=== PATIENT | female | born 1975 ===

== ENCOUNTER 2017-12-04 13:00 | Inpatient (IN) | payer OTHER ==
[~2017-12-04] VITALS: Ht 165.1 cm; Wt 71.2 kg
[2017-12-04] MEDS ORDERED: PRENATABS RX T1 EACH PO (15:30)
[2017-12-04] MEDS ORDERED: ASA81 MG PO (15:30)
[2017-12-04] MEDS ORDERED: IRON18 MG PO (15:31)
== END 2017-12-06 20:35 | DRG 807 ==
LOC: OB/GYN 13:00 → LDR 13:00 → OB/GYN 16:13
PROC: 10E0XZZ Delivery of Products of Conception, External Approach (ICD-10-PCS; principal; 2017-12-04)
PROC: 0KQM0ZZ Repair Perineum Muscle, Open Approach (ICD-10-PCS; 2017-12-04)
PROC: 4A1HXCZ Monitoring of Products of Conception, Cardiac Rate, External Approach (ICD-10-PCS; 2017-12-04)
PROC: 4A033R1 Measurement of Arterial Saturation, Peripheral, Percutaneous Approach (ICD-10-PCS; 2017-12-04)
DX: O70.1 Second degree perineal laceration during delivery (principal); Z37.0 Single live birth; Z3A.37 37 weeks gestation of pregnancy